=== PATIENT | male | born 1955 | race African-American/Black ===

== ENCOUNTER 2019-08-20 19:56 | Inpatient (IN) | payer MEDICAID ==
[~2019-08-20] VITALS: Ht 185.4 cm; Wt 103.4 kg
[~2019-08-20 19:56] MED LIST: AMLO5TAB88 PO; GLIP5TAB12 MT; L25 PO; LOSA25TA3 PO
[2019-08-20] MEDS ORDERED: ONDANSETRON HCL 4MG/2ML INJ IV STA (20:25)
[2019-08-20] MEDS ORDERED: SODIUM CHLORIDE 0.9% 1000ML BAG (SEPSIS BOLUS) IV ONE (20:30)
[2019-08-20] MEDS ORDERED: LEVETIRACETAM 1000MG/100ML 100 ML IV ONE (20:30)
[2019-08-20 20:51] LABS: HEMATOCRIT. 31.3 % (42.0-52.0); HEMOGLOBIN. 10.5 g/dL (14.0-18.0); MEAN CORPUSCULAR HEMOGLOBIN 31.6 pg (28.0-32.0); MEAN CORPUSCULAR VOLUME 94.6 fL (80.0-94.0); PLATELET 359 x1000/uL (130-400); RED BLOOD CELL COUNT 3.31 mill/uL (4.7-6.1)
[2019-08-20 20:52] LABS: CHLORIDE 94 mEq/L (98-107)
[2019-08-20 20:54] LABS: CLARITY URINE CLOUDY (CLEAR); COLOR URINE YELLOW (YELLOW); KETONES URINE NEGATIVE (NEGATIVE); LEUKOCYTE ESTERASE URINE NEGATIVE (NEGATIVE); NITRITE URINE NEGATIVE (NEGATIVE); OCCULT BLOOD URINE NEGATIVE (NEGATIVE); PROTEIN URINE 2+ (NEGATIVE); SPECIFIC GRAVITY URINE 1.013 (1.005-1.030)
[2019-08-20 20:56] LABS: PROTHROMBIN TIME 11.1 sec (9.6-11.0)
[2019-08-20 20:57] LABS: ETHANOL BLOOD < 10 mg/dL
[2019-08-20 21:01] LABS: CREATINE KINASE 52 IU/L (39-308)
[2019-08-20 21:04] LABS: BG BASE EXCESS 2.2 mmol/L (-2.0-2.0); BG CARBOXYHEMOGLOBIN 1.5 % (0.5-1.5); BG FRACTION INSPIRED OXYGEN 21; BG HCO3 ACT 26.8 mmol/L (22.0-26.0); BG METHEMOGLOBIN 0.3 % (0.0-1.5); BG OXYGEN SATURATION 88.8 % (92.0-98.5); BG OXYHEMOGLOBIN 87.2 % (94.0-97.0); BG PCO2 41.8 mmHg (35.0-45.0); BG PH 7.425 (7.350-7.450); BG PO2 57.2 mmHg (75.0-100.0); BG SAMPLE SITE RIGHT RADIAL; BG TOTAL HEMOGLOBIN 12.7 g/dL (12.0-18.0); BG VENT MODE ROOM AIR
[2019-08-20 21:07] LABS: *BARBITURATES SCREEN URINE NEGATIVE (NEGATIVE); *BENZODIAZEPINES SCREEN URINE NEGATIVE (NEGATIVE); *COCAINE SCREEN URINE NEGATIVE (NEGATIVE)
[2019-08-20 21:08] LABS: CARBAMAZEPINE < 0.5 ug/mL (4-12); VALPROIC ACID < 3.0 ug/mL (50-100)
[2019-08-20 21:08] LABS: *AMPHETAMINES SCREEN URINE NEGATIVE (NEGATIVE); CANNABINOID URINE SCREEN NEGATIVE (NEGATIVE); METHADONE URINE SCREEN NEGATIVE (NEGATIVE); OPIATES URINE SCREEN NEGATIVE (NEGATIVE); PHENCYCLIDINE URINE SCREEN NEGATIVE (NEGATIVE)
[2019-08-20 22:03] LABS: PLATELET ESTIMATE NORMAL
[2019-08-20] MEDS ORDERED: VANCOMYCIN 1 G PREMIX 200 ML IV SCH (23:30)
[2019-08-20] MEDS ORDERED: POTASSIUM CHLORIDE INJ 40 MEQ in DEXT 5% WATER 250 ML IV ONE (23:30)
[2019-08-21] VITALS (7 sets, daily range): BP systolic 196–209; BP diastolic 78–95
[2019-08-21] MEDS ORDERED: DIAZEPAM 5 MG/ML 2ML CPJ IM ONE
[2019-08-21] MEDS ORDERED: LORAZEPAM 2MG/ML CPJ ONE (06:05)
[2019-08-21] MEDS ORDERED: PHENYTOIN SODIUM 500MG in SODIUM CHLORIDE 0.9% 50ML IV ONE (07:30)
[2019-08-21] MEDS ORDERED: DEXTROSE 50% WATER 50ML SYRINGE IV PRN ×2 (07:30→16:45)
[2019-08-21] MEDS ORDERED: LORAZEPAM 2MG/ML CPJ IV ONE (07:30)
[2019-08-21] MEDS: INSULIN LISPRO (HIGH DOSE) 100 UNITS/ML SUBCUT SCH ×4 (08:17→22:33)
[2019-08-21] MEDS: BLOOD SUGAR DIAGNOSTIC STRIP TEST SCH ×4 (08:17→21:34)
[2019-08-21] MEDS ORDERED: MAGNESIUM/ALUMINUM HYDROXIDE/SIMETHICONE 30ML UDC PO PRN ×2 (09:00→16:45)
[2019-08-21] MEDS ORDERED: NA PHOS,M-B/NA PHOS,DI-BA ENEMA 118ML PR PRN ×2 (09:00→16:45)
[2019-08-21] MEDS ORDERED: GUAIFENESIN 200MG/10ML SUGAR FREE UDC PO PRN ×2 (09:00→16:45)
[2019-08-21] MEDS ORDERED: IPRATROPIUM/ALBUTEROL 0.5-3(2.5)MG/3ML NEB NEB PRN ×2 (09:00→16:45)
[2019-08-21] MEDS ORDERED: DOCUSATE SODIUM 100MG CAPSULE PO PRN ×2 (09:00→16:45)
[2019-08-21] MEDS ORDERED: ASPIRIN 81MG EC TABLET PO SCH (09:00)
[2019-08-21] MEDS ORDERED: MORPHINE SULFATE 2 MG/ML CPJ (NOT FOR IM USE) IV PRN ×2 (09:00→16:45)
[2019-08-21] MEDS ORDERED: DIPHENHYDRAMINE 50MG/ML VIAL IV PRN ×2 (09:00→16:45)
[2019-08-21] MEDS ORDERED: ONDANSETRON HCL 4MG/2ML INJ IV PRN ×2 (09:00→16:45)
[2019-08-21] MEDS ORDERED: LORAZEPAM 2MG/ML CPJ IV PRN (09:00)
[2019-08-21] MEDS ORDERED: HYDROCODONE/ACETAMINOPHEN 5/325MG TABLET PO PRN ×2 (09:00→16:45)
[2019-08-21] MEDS ORDERED: ACETAMINOPHEN 325MG TABLET PO PRN (09:00)
[2019-08-21] MEDS ORDERED: CLONIDINE 0.1MG TABLET PO PRN (09:00)
[2019-08-21] MEDS ORDERED: ENOXAPARIN 40MG/0.4ML SYR SUBCUT SCH (09:00)
[2019-08-21] MEDS ORDERED: AZITHROMYCIN 500 MG in DEXT 5% WATER 250 ML IV NR (09:30)
[2019-08-21] MEDS ORDERED: DEXT 5%/0.45% NACL KCL 10MEQ/L 1,000 ML IV ONE (09:30)
[2019-08-21] MEDS ORDERED: HYDRALAZINE 20MG/ML VIAL IV NR (13:05)
[2019-08-21] MEDS ORDERED: DEXT 5%/0.45% NACL KCL 10MEQ/L 1,000 ML IV SCH ×2 (15:00→16:15)
[2019-08-21] MEDS: ASPIRIN 81MG EC TABLET PO SCH (17:00)
[2019-08-21] MEDS: VANCOMYCIN 1500MG in DEXTROSE 5% WATER 250ML IV SCH (17:54)
[2019-08-21] MEDS ORDERED: LABETALOL 5MG/ML SYR 20 MG/4 ML SYRINGE IV SCH (18:00)
[2019-08-21] MEDS: CLONIDINE 0.1MG TABLET PO PRN (21:30)
[2019-08-21] MEDS: HYDRALAZINE 20MG/ML VIAL IV PRN (21:32)
[2019-08-21] MEDS: LEVETIRACETAM 500MG PREMIX 100 ML IV SCH (21:32)
[2019-08-21] MEDS: ENOXAPARIN 40MG/0.4ML SYR SUBCUT SCH (21:34)
[2019-08-21] MEDS: DEXT 5%/0.45% NACL KCL 10MEQ/L 1,000 ML IV SCH (21:34)
[2019-08-22] VITALS (90 sets, daily range): BP systolic 57–225; BP diastolic 36–130
[2019-08-22] MEDS ORDERED: LABETALOL 5MG/ML SYR 20 MG/4 ML SYRINGE IV NR (01:00)
[2019-08-22 02:24] LABS: HEMATOCRIT. 28.2 % (42.0-52.0); MEAN CORPUSCULAR HEMOGLOBIN 32.3 pg (28.0-32.0); MEAN CORPUSCULAR VOLUME 90.8 fL (80.0-94.0); MEAN PLATELET VOLUME 10.5 fl (7.4-10.4); PLATELET 521 x1000/uL (130-400); RED BLOOD CELL COUNT 3.11 mill/uL (4.7-6.1)
[2019-08-22] MEDS ORDERED: NICARDIPINE 100 MG in SODIUM CHLORIDE 0.9% 60 ML IV PRN (02:30)
[2019-08-22] MEDS: CLONIDINE HCL 0.1MG/24HR PATCH TD NR (02:34)
[2019-08-22] MEDS: NICARDIPINE 50 MG in SODIUM CHLORIDE 0.9% 230 ML IV PRN ×5 (03:34→21:16)
[2019-08-22] MEDS: BLOOD SUGAR DIAGNOSTIC STRIP TEST SCH ×4 (06:30→20:39)
[2019-08-22] MEDS: INSULIN LISPRO (HIGH DOSE) 100 UNITS/ML SUBCUT SCH ×4 (06:30→20:52)
[2019-08-22 06:42] LABS: CHLORIDE 99 mEq/L (98-107)
[2019-08-22] MEDS: DEXT 5%/0.45% NACL KCL 10MEQ/L 1,000 ML IV SCH ×2 (07:55→17:02)
[2019-08-22] MEDS: AZITHROMYCIN 500 MG in DEXT 5% WATER 250 ML IV SCH (08:42)
[2019-08-22] MEDS: LEVETIRACETAM 500MG PREMIX 100 ML IV SCH ×2 (08:42→20:45)
[2019-08-22] MEDS: THIAMINE HCL 100MG TABLET PO SCH (08:43)
[2019-08-22] MEDS: FOLIC ACID 1MG TABLET PO SCH (08:43)
[2019-08-22] MEDS: MULTIVITAMINS,THER W-MINERALS TABLET PO SCH (08:43)
[2019-08-22] MEDS: ASPIRIN 81MG EC TABLET PO SCH (08:43)
[2019-08-22] MEDS ORDERED: POTASSIUM CHLORIDE INJ 40 MEQ in DEXT 5% WATER 250 ML IV SCH (09:00)
[2019-08-22] MEDS ORDERED: THIAMINE HCL 100MG TABLET PO SCH (09:00)
[2019-08-22] MEDS ORDERED: FOLIC ACID 1MG TABLET PO SCH (09:00)
[2019-08-22] MEDS ORDERED: AZITHROMYCIN 500 MG in DEXT 5% WATER 250 ML IV SCH ×4 (09:00)
[2019-08-22] MEDS ORDERED: MULTIVITAMINS,THER W-MINERALS TABLET PO SCH (09:00)
[2019-08-22] MEDS: LORAZEPAM 2MG/ML CPJ IV PRN (09:16)
[2019-08-22 09:52] LABS: CHLORIDE 100 mEq/L (98-107)
[2019-08-22] MEDS ORDERED: POTASSIUM CHLORIDE INJ 60 MEQ in DEXT 5% WATER 500 ML IV SCH ×2 (11:15→14:00)
[2019-08-22] MEDS: VANCOMYCIN 1500MG in DEXTROSE 5% WATER 250ML IV SCH (12:00)
[2019-08-22] MEDS ORDERED: LIDOCAINE HCL 1% 20ML VIAL (Pyxis) INJ ONE (12:11)
[2019-08-22 13:04] LABS: BG BASE EXCESS 6.9 mmol/L (-2.0-2.0); BG CARBOXYHEMOGLOBIN 0.3 % (0.5-1.5); BG DEOXYHEMOGLOBIN 0.4 % (0.0-5.0); BG HCO3 ACT 30.4 mmol/L (22.0-26.0); BG METHEMOGLOBIN 0.3 % (0.0-1.5); BG OXYGEN SATURATION 99.6 % (92.0-98.5); BG PCO2 39.2 mmHg (35.0-45.0); BG PH 7.508 (7.350-7.450); BG PO2 495.8 mmHg (75.0-100.0); BG SAMPLE SITE RIGHT RADIAL; BG TIDAL VOLUME(mL) 500 mL; BG TOTAL HEMOGLOBIN 11.2 g/dL (12.0-18.0); BG VENT MODE VENT - A/C; BG VENT RATE 16 set
[2019-08-22] MEDS: PROPOFOL 10MG/ML 100ML 100 ML IV PRN ×3 (13:16→20:51)
[2019-08-22] MEDS: IPRATROPIUM/ALBUTEROL 0.5-3(2.5)MG/3ML NEB HHN SCH ×2 (16:16→20:54)
[2019-08-22] MEDS: ACETYLCYSTEINE 100MG/ML 10% VIAL 4ML INH SCH (16:16)
[2019-08-22 19:04] LABS: PLATELET ESTIMATE INCREASED
[2019-08-22] MEDS: ENOXAPARIN 40MG/0.4ML SYR SUBCUT SCH (20:51)
[2019-08-22] MEDS ORDERED: POTASSIUM CHLORIDE 20MEQ/PACKET PO NR (21:00)
[2019-08-22] MEDS: ACETAMINOPHEN 325MG TABLET PO PRN (22:35)
[2019-08-22] MEDS ORDERED: POTASSIUM PHOS,M-BASIC-D-BASIC 30 MMOL in SODIUM CHLORIDE 0.9% 500 ML IV NR (23:00)
[2019-08-23] VITALS (84 sets, daily range): BP systolic 58–196; BP diastolic 16–98
[2019-08-23] MEDS: PROPOFOL 10MG/ML 100ML 100 ML IV PRN ×6 (00:27→20:22)
[2019-08-23] MEDS: IPRATROPIUM/ALBUTEROL 0.5-3(2.5)MG/3ML NEB HHN SCH ×4 (00:46→21:32)
[2019-08-23] MEDS: CLONIDINE HCL 0.1MG/24HR PATCH TD NR (01:00)
[2019-08-23] MEDS: NICARDIPINE 50 MG in SODIUM CHLORIDE 0.9% 230 ML IV PRN ×3 (01:27→20:29)
[2019-08-23] MEDS: DEXT 5%/0.45% NACL KCL 10MEQ/L 1,000 ML IV SCH ×3 (03:02→22:56)
[2019-08-23] MEDS: BLOOD SUGAR DIAGNOSTIC STRIP TEST SCH ×4 (08:06→20:23)
[2019-08-23 08:18] LABS: HEMATOCRIT. 22.7 % (42.0-52.0); HEMOGLOBIN. 7.7 g/dL (14.0-18.0); MEAN CORPUSCULAR HEMOGLOBIN 31.2 pg (28.0-32.0); MEAN CORPUSCULAR VOLUME 92.4 fL (80.0-94.0); MEAN PLATELET VOLUME 9.5 fl (7.4-10.4); PHOSPHORUS 2.8 mg/dL (2.5-4.9); PLATELET 372 x1000/uL (130-400); RED BLOOD CELL COUNT 2.46 mill/uL (4.7-6.1); RED CELL DISTRIBUTION WIDTH 16.8 % (11.6-14.6)
[2019-08-23] MEDS: LEVETIRACETAM 500MG PREMIX 100 ML IV SCH ×2 (08:44→20:20)
[2019-08-23] MEDS: AZITHROMYCIN 500 MG in DEXT 5% WATER 250 ML IV SCH (08:44)
[2019-08-23] MEDS: VANCOMYCIN 1500MG in DEXTROSE 5% WATER 250ML IV SCH (08:44)
[2019-08-23] MEDS: FOLIC ACID 1MG TABLET PO SCH (08:45)
[2019-08-23] MEDS: THIAMINE HCL 100MG TABLET PO SCH (08:45)
[2019-08-23] MEDS: MULTIVITAMINS,THER W-MINERALS TABLET PO SCH (08:45)
[2019-08-23] MEDS: INSULIN LISPRO (HIGH DOSE) 100 UNITS/ML SUBCUT SCH ×4 (08:48→20:23)
[2019-08-23] MEDS: ACETYLCYSTEINE 100MG/ML 10% VIAL 4ML INH SCH ×3 (08:57→14:00)
[2019-08-23] MEDS: ASPIRIN 81MG EC TABLET PO SCH (09:00)
[2019-08-23 09:08] LABS: BG BASE EXCESS 0.6 mmol/L (-2.0-2.0); BG CARBOXYHEMOGLOBIN 0.3 % (0.5-1.5); BG DEOXYHEMOGLOBIN 3.1 % (0.0-5.0); BG FRACTION INSPIRED OXYGEN 40; BG HCO3 ACT 23.6 mmol/L (22.0-26.0); BG METHEMOGLOBIN 0.3 % (0.0-1.5); BG OXYGEN SATURATION 96.9 % (92.0-98.5); BG OXYHEMOGLOBIN 96.3 % (94.0-97.0); BG PCO2 31.2 mmHg (35.0-45.0); BG PH 7.496 (7.350-7.450); BG PO2 93.8 mmHg (75.0-100.0); BG SAMPLE SITE RIGHT RADIAL; BG TIDAL VOLUME(mL) 500 mL; BG TOTAL HEMOGLOBIN 8.7 g/dL (12.0-18.0); BG VENT MODE VENT - A/C; BG VENT RATE 12 set
[2019-08-23 09:59] LABS: PLATELET ESTIMATE NORMAL
[2019-08-23] MEDS ORDERED: POTASSIUM CHLORIDE INJ 60 MEQ in SODIUM CHLORIDE 0.9% 500 ML IV SCH (11:00)
[2019-08-23] MEDS: INSULIN GLARGINE UD 100 UNITS/ML SYR SUBCUT SCH (12:10)
[2019-08-23] MEDS ORDERED: ENOXAPARIN 40MG/0.4ML SYR SUBCUT SCH (14:00)
[2019-08-23] MEDS: CEFTRIAXONE 2 G in DEXTROSE 5% WATER 50 ML IV SCH (14:10)
[2019-08-23] MEDS ORDERED: MAGNESIUM 2 G PREMIX 50 ML IV NR ×2 (16:20→22:30)
[2019-08-23] MEDS: ACETAMINOPHEN 325MG TABLET PO PRN (16:25)
[2019-08-23] MEDS: LORAZEPAM 2MG/ML CPJ IV PRN (18:03)
[2019-08-23] MEDS: CARVEDILOL 6.25 MG TABLET PO SCH (20:21)
[2019-08-24] VITALS (85 sets, daily range): BP systolic 119–191; BP diastolic 59–137
[2019-08-24] MEDS ORDERED: POTASSIUM CHLORIDE 20MEQ TABLET SR PO NR
[2019-08-24 00:25] LABS: CREATINE KINASE 234 IU/L (39-308)
[2019-08-24] MEDS: CLONIDINE HCL 0.1MG/24HR PATCH TD NR (00:33)
[2019-08-24] MEDS: PROPOFOL 10MG/ML 100ML 100 ML IV PRN ×6 (00:33→22:42)
[2019-08-24] MEDS: ACETYLCYSTEINE 100MG/ML 10% VIAL 4ML INH SCH ×3 (01:05→15:51)
[2019-08-24] MEDS: IPRATROPIUM/ALBUTEROL 0.5-3(2.5)MG/3ML NEB HHN SCH ×6 (01:06→20:22)
[2019-08-24 06:12] LABS: PHOSPHORUS 3.3 mg/dL (2.5-4.9)
[2019-08-24 08:05] LABS: HEMATOCRIT. 24.4 % (42.0-52.0); HEMOGLOBIN. 8.1 g/dL (14.0-18.0); MEAN CORPUSCULAR HEMOGLOBIN 31.3 pg (28.0-32.0); MEAN CORPUSCULAR VOLUME 93.8 fL (80.0-94.0); MEAN PLATELET VOLUME 9.9 fl (7.4-10.4); PLATELET 363 x1000/uL (130-400); RED CELL DISTRIBUTION WIDTH 16.4 % (11.6-14.6)
[2019-08-24] MEDS: AZITHROMYCIN 500 MG in DEXT 5% WATER 250 ML IV SCH (08:42)
[2019-08-24] MEDS: THIAMINE HCL 100MG TABLET PO SCH (08:42)
[2019-08-24] MEDS: FOLIC ACID 1MG TABLET PO SCH (08:42)
[2019-08-24] MEDS: PANTOPRAZOLE SODIUM 40 MG/VIAL IV SCH (08:42)
[2019-08-24] MEDS: MULTIVITAMINS,THER W-MINERALS TABLET PO SCH (08:42)
[2019-08-24] MEDS: CARVEDILOL 6.25 MG TABLET PO SCH ×2 (08:43→20:44)
[2019-08-24] MEDS: BLOOD SUGAR DIAGNOSTIC STRIP TEST SCH ×4 (08:45→20:43)
[2019-08-24] MEDS: ASPIRIN 81MG EC TABLET PO SCH (09:00)
[2019-08-24] MEDS: INSULIN LISPRO (HIGH DOSE) 100 UNITS/ML SUBCUT SCH ×4 (09:12→20:45)
[2019-08-24] MEDS: LEVETIRACETAM 500MG PREMIX 100 ML IV SCH ×2 (09:15→20:43)
[2019-08-24] MEDS: DEXT 5%/0.45% NACL 1000ML 1,000 ML IV SCH (09:19)
[2019-08-24 09:23] LABS: BG BASE EXCESS -2.8 mmol/L (-2.0-2.0); BG CARBOXYHEMOGLOBIN 0.3 % (0.5-1.5); BG DEOXYHEMOGLOBIN 18.8 % (0.0-5.0); BG FRACTION INSPIRED OXYGEN 40; BG HCO3 ACT 21.1 mmol/L (22.0-26.0); BG METHEMOGLOBIN 0.1 % (0.0-1.5); BG OXYGEN SATURATION 81.1 % (92.0-98.5); BG OXYHEMOGLOBIN 80.8 % (94.0-97.0); BG PCO2 32.9 mmHg (35.0-45.0); BG PH 7.425 (7.350-7.450); BG PO2 46.4 mmHg (75.0-100.0); BG SAMPLE SITE RIGHT RADIAL; BG TIDAL VOLUME(mL) 500 mL; BG VENT MODE VENT - A/C; BG VENT RATE 12 set
[2019-08-24 10:24] LABS: PLATELET ESTIMATE NORMAL
[2019-08-24 11:00] LABS: BG BASE EXCESS -4.3 mmol/L (-2.0-2.0); BG CARBOXYHEMOGLOBIN 0.2 % (0.5-1.5); BG DEOXYHEMOGLOBIN 3.6 % (0.0-5.0); BG FRACTION INSPIRED OXYGEN 60; BG HCO3 ACT 19.3 mmol/L (22.0-26.0); BG METHEMOGLOBIN 0.2 % (0.0-1.5); BG OXYGEN SATURATION 96.4 % (92.0-98.5); BG PCO2 29.8 mmHg (35.0-45.0); BG PH 7.429 (7.350-7.450); BG PO2 89.4 mmHg (75.0-100.0); BG SAMPLE SITE RIGHT RADIAL; BG TIDAL VOLUME(mL) 500 mL; BG VENT MODE VENT - A/C; BG VENT RATE 12 set
[2019-08-24] MEDS: INSULIN GLARGINE UD 100 UNITS/ML SYR SUBCUT SCH (12:28)
[2019-08-24] MEDS: CEFTRIAXONE 2 G in DEXTROSE 5% WATER 50 ML IV SCH (14:25)
[2019-08-24 19:29] LABS: HEMATOCRIT. 24.8 % (42.0-52.0); HEMOGLOBIN. 8.6 g/dL (14.0-18.0); MEAN CORPUSCULAR VOLUME 92.7 fL (80.0-94.0); MEAN PLATELET VOLUME 9.3 fl (7.4-10.4); PLATELET 384 x1000/uL (130-400); RED BLOOD CELL COUNT 2.68 mill/uL (4.7-6.1); RED CELL DISTRIBUTION WIDTH 16.5 % (11.6-14.6)
[2019-08-24 20:34] LABS: PLATELET ESTIMATE NORMAL
[2019-08-24] MEDS ORDERED: VANCOMYCIN 1 G PREMIX 200 ML IV SCH (22:00)
[2019-08-25] VITALS (70 sets, daily range): BP systolic 124–165; BP diastolic 41–84
[2019-08-25] MEDS: IPRATROPIUM/ALBUTEROL 0.5-3(2.5)MG/3ML NEB HHN SCH ×5 (00:14→20:03)
[2019-08-25] MEDS: ACETYLCYSTEINE 100MG/ML 10% VIAL 4ML INH SCH ×3 (00:14→13:12)
[2019-08-25] MEDS: CLONIDINE HCL 0.1MG/24HR PATCH TD NR (01:00)
[2019-08-25] MEDS: PROPOFOL 10MG/ML 100ML 100 ML IV PRN ×4 (03:31→16:31)
[2019-08-25 06:46] LABS: MEAN CORPUSCULAR HEMOGLOBIN 31.9 pg (28.0-32.0); MEAN PLATELET VOLUME 9.8 fl (7.4-10.4); PLATELET 292 x1000/uL (130-400); RED BLOOD CELL COUNT 2.19 mill/uL (4.7-6.1)
[2019-08-25 06:56] LABS: HEMATOCRIT. 20.4 % (42.0-52.0)
[2019-08-25 07:49] LABS: BG BASE EXCESS -5.9 mmol/L (-2.0-2.0); BG CARBOXYHEMOGLOBIN 0.3 % (0.5-1.5); BG DEOXYHEMOGLOBIN 3.2 % (0.0-5.0); BG FRACTION INSPIRED OXYGEN 60; BG HCO3 ACT 19.5 mmol/L (22.0-26.0); BG METHEMOGLOBIN 0.2 % (0.0-1.5); BG OXYGEN SATURATION 96.8 % (92.0-98.5); BG OXYHEMOGLOBIN 96.3 % (94.0-97.0); BG PCO2 38.1 mmHg (35.0-45.0); BG PH 7.327 (7.350-7.450); BG SAMPLE SITE RIGHT RADIAL; BG TIDAL VOLUME(mL) 500 mL; BG TOTAL HEMOGLOBIN 8.2 g/dL (12.0-18.0); BG VENT MODE VENT - A/C; BG VENT RATE 12 set
[2019-08-25] MEDS: BLOOD SUGAR DIAGNOSTIC STRIP TEST SCH ×4 (07:50→20:44)
[2019-08-25] MEDS: INSULIN LISPRO (HIGH DOSE) 100 UNITS/ML SUBCUT SCH ×4 (08:20→20:45)
[2019-08-25] MEDS: PANTOPRAZOLE SODIUM 40 MG/VIAL IV SCH (10:14)
[2019-08-25] MEDS: THIAMINE HCL 100MG TABLET PO SCH (10:14)
[2019-08-25] MEDS: ASPIRIN 81MG EC TABLET PO SCH (10:15)
[2019-08-25] MEDS: FOLIC ACID 1MG TABLET PO SCH (10:15)
[2019-08-25] MEDS: AZITHROMYCIN 500 MG in DEXT 5% WATER 250 ML IV SCH (10:15)
[2019-08-25] MEDS: CARVEDILOL 6.25 MG TABLET PO SCH ×2 (10:15→20:47)
[2019-08-25] MEDS: LEVETIRACETAM 500MG PREMIX 100 ML IV SCH ×2 (10:15→20:47)
[2019-08-25] MEDS: MULTIVITAMINS,THER W-MINERALS TABLET PO SCH (10:15)
[2019-08-25] MEDS: INSULIN GLARGINE UD 100 UNITS/ML SYR SUBCUT SCH (10:17)
[2019-08-25] MEDS: DEXT 5%/0.45% NACL 1000ML 1,000 ML IV SCH (10:19)
[2019-08-25 13:09] LABS: PLATELET ESTIMATE NORMAL
[2019-08-25] MEDS: FENTANYL CITRATE/PF 500 MCG in SODIUM CHLORIDE 0.9% 40 ML IV PRN ×2 (15:00→23:05)
[2019-08-25] MEDS: CEFTRIAXONE 2 G in DEXTROSE 5% WATER 50 ML IV SCH (17:29)
[2019-08-25 19:53] LABS: HEMATOCRIT 26.6 % (42.0-52.0); HEMOGLOBIN 8.9 g/dL (14.0-18.0)
[2019-08-26] VITALS (57 sets, daily range): BP systolic 139–184; BP diastolic 64–146
[2019-08-26] MEDS: CLONIDINE HCL 0.1MG/24HR PATCH TD NR (00:09)
[2019-08-26] MEDS: IPRATROPIUM/ALBUTEROL 0.5-3(2.5)MG/3ML NEB HHN SCH ×5 (00:15→15:00)
[2019-08-26] MEDS: PROPOFOL 10MG/ML 100ML 100 ML IV PRN (02:32)
[2019-08-26 05:57] LABS: HEMATOCRIT. 24.6 % (42.0-52.0); HEMOGLOBIN. 8.4 g/dL (14.0-18.0); MEAN CORPUSCULAR HEMOGLOBIN 30.3 pg (28.0-32.0); MEAN CORPUSCULAR VOLUME 88.5 fL (80.0-94.0); MEAN PLATELET VOLUME 9.7 fl (7.4-10.4); RED BLOOD CELL COUNT 2.78 mill/uL (4.7-6.1); RED CELL DISTRIBUTION WIDTH 20.1 % (11.6-14.6)
[2019-08-26 06:14] LABS: INR 0.9; PARTIAL THROMBOPLASTIN TIME 33.1 sec (23.4-31.0); PROTHROMBIN TIME 10.1 sec (9.6-11.0)
[2019-08-26] MEDS: BLOOD SUGAR DIAGNOSTIC STRIP TEST SCH ×3 (07:24→17:34)
[2019-08-26] MEDS: INSULIN LISPRO (HIGH DOSE) 100 UNITS/ML SUBCUT SCH ×3 (07:24→17:34)
[2019-08-26 07:30] LABS: PLATELET ESTIMATE NORMAL
[2019-08-26 07:45] LABS: PLATELET 321 x1000/uL (130-400)
[2019-08-26] MEDS: ACETYLCYSTEINE 100MG/ML 10% VIAL 4ML INH SCH ×2 (08:04→15:01)
[2019-08-26] MEDS: CARVEDILOL 6.25 MG TABLET PO SCH ×2 (08:10→21:28)
[2019-08-26] MEDS: MULTIVITAMINS,THER W-MINERALS TABLET PO SCH (08:10)
[2019-08-26] MEDS: THIAMINE HCL 100MG TABLET PO SCH (08:10)
[2019-08-26] MEDS: FOLIC ACID 1MG TABLET PO SCH (08:10)
[2019-08-26] MEDS: DEXT 5%/0.45% NACL 1000ML 1,000 ML IV SCH (08:11)
[2019-08-26] MEDS: LEVETIRACETAM 500MG PREMIX 100 ML IV SCH ×2 (08:12→21:28)
[2019-08-26] MEDS: PANTOPRAZOLE SODIUM 40 MG/VIAL IV SCH (08:15)
[2019-08-26] MEDS: ASPIRIN 81MG EC TABLET PO SCH (08:15)
[2019-08-26 09:13] LABS: BG BASE EXCESS -7.9 mmol/L (-2.0-2.0); BG CARBOXYHEMOGLOBIN 0.3 % (0.5-1.5); BG DEOXYHEMOGLOBIN 2.9 % (0.0-5.0); BG FRACTION INSPIRED OXYGEN 50; BG HCO3 ACT 17.3 mmol/L (22.0-26.0); BG METHEMOGLOBIN 0.3 % (0.0-1.5); BG OXYGEN SATURATION 97.1 % (92.0-98.5); BG OXYHEMOGLOBIN 96.5 % (94.0-97.0); BG PCO2 33.5 mmHg (35.0-45.0); BG PO2 105.9 mmHg (75.0-100.0); BG SAMPLE SITE RIGHT RADIAL; BG TIDAL VOLUME(mL) 500 mL; BG TOTAL HEMOGLOBIN 8.8 g/dL (12.0-18.0); BG VENT MODE VENT - A/C; BG VENT RATE 12 set
[2019-08-26] MEDS: FENTANYL CITRATE/PF 500 MCG in SODIUM CHLORIDE 0.9% 40 ML IV PRN ×2 (09:19→21:35)
[2019-08-26] MEDS: INSULIN GLARGINE UD 100 UNITS/ML SYR SUBCUT SCH (09:51)
[2019-08-26] MEDS ORDERED: LIDOCAINE HCL 1% 20ML VIAL (Pyxis) INJ ONE (11:09)
[2019-08-26] MEDS: MIDAZOLAM HCL 50 MG in DEXTROSE 5% WATER 40 ML IV PRN ×2 (11:29→23:22)
[2019-08-26] MEDS ORDERED: MIDAZOLAM HCL 5 MG/5 ML VIAL ONE (12:20)
[2019-08-26] MEDS ORDERED: FENTANYL CITRATE/PF 50MCG/ML 2ML VIAL ONE (12:20)
[2019-08-26] MEDS ORDERED: MIDAZOLAM HCL 5 MG/5 ML VIAL IV NR (12:20)
[2019-08-26 12:42] LABS: HEPATITIS B SURFACE AB < 3.1 mIU/mL
[2019-08-26 12:52] LABS: HEPATITIS B SURFACE ANTIGEN NEGATIVE
[2019-08-26] MEDS: CEFTRIAXONE 2 G in DEXTROSE 5% WATER 50 ML IV SCH (13:02)
[2019-08-26 13:22] LABS: HEPATITIS A AB IGM NEGATIVE (NEGATIVE)
[2019-08-27] VITALS (55 sets, daily range): BP systolic 143–209; BP diastolic 57–95
[2019-08-27] MEDS: IPRATROPIUM/ALBUTEROL 0.5-3(2.5)MG/3ML NEB HHN SCH ×7 (00:50→23:58)
[2019-08-27] MEDS: ACETYLCYSTEINE 100MG/ML 10% VIAL 4ML INH SCH ×2 (00:50→07:50)
[2019-08-27] MEDS: BLOOD SUGAR DIAGNOSTIC STRIP TEST SCH ×4 (05:43→18:42)
[2019-08-27] MEDS: INSULIN LISPRO 100 UNITS/ML SUBCUT SCH ×4 (05:43→18:42)
[2019-08-27 06:20] LABS: HEMATOCRIT. 23.7 % (42.0-52.0); HEMOGLOBIN. 8.2 g/dL (14.0-18.0); MEAN CORPUSCULAR HEMOGLOBIN 30.6 pg (28.0-32.0); MEAN CORPUSCULAR VOLUME 88.4 fL (80.0-94.0); MEAN PLATELET VOLUME 9.6 fl (7.4-10.4); PLATELET 386 x1000/uL (130-400); RED BLOOD CELL COUNT 2.68 mill/uL (4.7-6.1); RED CELL DISTRIBUTION WIDTH 20.2 % (11.6-14.6)
[2019-08-27 08:17] LABS: PLATELET ESTIMATE NORMAL
[2019-08-27] MEDS: FOLIC ACID 1MG TABLET PO SCH (09:20)
[2019-08-27] MEDS: CLONIDINE 0.1MG TABLET PO PRN ×2 (09:20→15:14)
[2019-08-27] MEDS: PANTOPRAZOLE SODIUM 40 MG/VIAL IV SCH (09:20)
[2019-08-27] MEDS: THIAMINE HCL 100MG TABLET PO SCH (09:20)
[2019-08-27] MEDS: MULTIVITAMINS,THER W-MINERALS TABLET PO SCH (09:21)
[2019-08-27] MEDS: CARVEDILOL 6.25 MG TABLET PO SCH ×2 (09:21→20:54)
[2019-08-27] MEDS: ASPIRIN 81MG EC TABLET PO SCH (09:21)
[2019-08-27] MEDS: LEVETIRACETAM 500MG PREMIX 100 ML IV SCH ×2 (09:22→20:53)
[2019-08-27] MEDS: DEXT 5%/0.45% NACL 1000ML 1,000 ML IV SCH (09:23)
[2019-08-27 09:34] LABS: BG BASE EXCESS -7.6 mmol/L (-2.0-2.0); BG CARBOXYHEMOGLOBIN 0.3 % (0.5-1.5); BG DEOXYHEMOGLOBIN 5.3 % (0.0-5.0); BG FRACTION INSPIRED OXYGEN 40; BG HCO3 ACT 17.4 mmol/L (22.0-26.0); BG METHEMOGLOBIN 0.1 % (0.0-1.5); BG OXYGEN SATURATION 94.7 % (92.0-98.5); BG OXYHEMOGLOBIN 94.3 % (94.0-97.0); BG PCO2 33.3 mmHg (35.0-45.0); BG PH 7.336 (7.350-7.450); BG PO2 85.2 mmHg (75.0-100.0); BG SAMPLE SITE RIGHT RADIAL; BG TIDAL VOLUME(mL) 500 mL; BG TOTAL HEMOGLOBIN 9.5 g/dL (12.0-18.0); BG VENT MODE VENT - A/C; BG VENT RATE 12 set
[2019-08-27] MEDS ORDERED: MORPHINE SULFATE 2 MG/ML CPJ (NOT FOR IM USE) IV PRN (10:00)
[2019-08-27] MEDS ORDERED: LORAZEPAM 2MG/ML CPJ IV PRN (10:00)
[2019-08-27] MEDS: INSULIN GLARGINE UD 100 UNITS/ML SYR SUBCUT SCH (10:29)
[2019-08-27] MEDS: HYDRALAZINE HCL 25MG TABLET PO SCH ×2 (13:13→22:00)
[2019-08-27] MEDS: HYDRALAZINE 20MG/ML VIAL IV PRN (14:38)
[2019-08-27] MEDS: CEFTRIAXONE 2 G in DEXTROSE 5% WATER 50 ML IV SCH (14:49)
[2019-08-27] MEDS: ACETAMINOPHEN 325MG TABLET PO PRN (16:49)
[2019-08-28] VITALS (55 sets, daily range): BP systolic 138–186; BP diastolic 60–86
[2019-08-28] MEDS: BLOOD SUGAR DIAGNOSTIC STRIP TEST SCH ×4 (00:12→17:02)
[2019-08-28] MEDS: HYDRALAZINE HCL 25MG TABLET PO SCH ×3 (05:22→21:21)
[2019-08-28] MEDS: INSULIN LISPRO 100 UNITS/ML SUBCUT SCH ×4 (05:22→17:02)
[2019-08-28 05:40] LABS: HEMATOCRIT. 24.2 % (42.0-52.0); HEMOGLOBIN. 8.3 g/dL (14.0-18.0); MEAN CORPUSCULAR HEMOGLOBIN 30.4 pg (28.0-32.0); MEAN CORPUSCULAR VOLUME 88.3 fL (80.0-94.0); MEAN PLATELET VOLUME 9.4 fl (7.4-10.4); PLATELET 429 x1000/uL (130-400); RED BLOOD CELL COUNT 2.74 mill/uL (4.7-6.1); RED CELL DISTRIBUTION WIDTH 20.6 % (11.6-14.6)
[2019-08-28 08:17] LABS: PLATELET ESTIMATE SLIGHTLY INCREASED
[2019-08-28] MEDS: IPRATROPIUM/ALBUTEROL 0.5-3(2.5)MG/3ML NEB HHN SCH ×4 (08:21→21:27)
[2019-08-28] MEDS: ASPIRIN 81MG EC TABLET PO SCH (09:14)
[2019-08-28] MEDS: CARVEDILOL 6.25 MG TABLET PO SCH ×2 (09:14→20:01)
[2019-08-28] MEDS: FOLIC ACID 1MG TABLET PO SCH (09:14)
[2019-08-28] MEDS: MULTIVITAMINS,THER W-MINERALS TABLET PO SCH (09:14)
[2019-08-28] MEDS: THIAMINE HCL 100MG TABLET PO SCH (09:14)
[2019-08-28] MEDS: ACETAMINOPHEN 325MG TABLET PO PRN (09:14)
[2019-08-28] MEDS: LEVETIRACETAM 500MG PREMIX 100 ML IV SCH ×2 (09:15→20:01)
[2019-08-28] MEDS: DEXT 5%/0.45% NACL 1000ML 1,000 ML IV SCH (09:15)
[2019-08-28] MEDS: PANTOPRAZOLE SODIUM 40 MG/VIAL IV SCH (10:43)
[2019-08-28] MEDS: INSULIN GLARGINE UD 100 UNITS/ML SYR SUBCUT SCH (10:44)
[2019-08-28] MEDS ORDERED: BISACODYL 10MG SUPP PR SCH (10:45)
[2019-08-28] MEDS: ACETYLCYSTEINE 100MG/ML 10% VIAL 4ML INH SCH (15:55)
[2019-08-28] MEDS: CLONIDINE 0.1MG TABLET PO PRN (15:56)
[2019-08-28] MEDS: CEFTRIAXONE 2 G in DEXTROSE 5% WATER 50 ML IV SCH (16:54)
[2019-08-28] MEDS: METRONIDAZOLE 500MG TABLET PO SCH (17:00)
[2019-08-28] MEDS: HYDRALAZINE 20MG/ML VIAL IV PRN (18:33)
[2019-08-28] MEDS: AMLODIPINE 10MG TABLET PO SCH (22:59)
[2019-08-29] VITALS (63 sets, daily range): BP systolic 127–192; BP diastolic 62–92
[2019-08-29] MEDS: BLOOD SUGAR DIAGNOSTIC STRIP TEST SCH ×4 (00:11→17:28)
[2019-08-29] MEDS: INSULIN LISPRO 100 UNITS/ML SUBCUT SCH ×4 (00:15→17:35)
[2019-08-29] MEDS: IPRATROPIUM/ALBUTEROL 0.5-3(2.5)MG/3ML NEB HHN SCH ×6 (00:57→20:35)
[2019-08-29] MEDS: ACETYLCYSTEINE 100MG/ML 10% VIAL 4ML INH SCH ×3 (00:57→15:49)
[2019-08-29] MEDS: HYDRALAZINE HCL 25MG TABLET PO SCH ×3 (05:27→22:00)
[2019-08-29 06:23] LABS: HEMATOCRIT. 24.3 % (42.0-52.0); HEMOGLOBIN. 8.2 g/dL (14.0-18.0); MEAN CORPUSCULAR VOLUME 88.5 fL (80.0-94.0); MEAN PLATELET VOLUME 9.2 fl (7.4-10.4); PLATELET 470 x1000/uL (130-400); RED BLOOD CELL COUNT 2.75 mill/uL (4.7-6.1); RED CELL DISTRIBUTION WIDTH 20.1 % (11.6-14.6)
[2019-08-29] MEDS: METRONIDAZOLE 500MG TABLET PO SCH ×2 (06:34→17:35)
[2019-08-29] MEDS: THIAMINE HCL 100MG TABLET PO SCH (09:29)
[2019-08-29] MEDS: PANTOPRAZOLE SODIUM 40 MG/VIAL IV SCH (09:29)
[2019-08-29] MEDS: MULTIVITAMINS,THER W-MINERALS TABLET PO SCH (09:29)
[2019-08-29] MEDS: LEVETIRACETAM 500MG PREMIX 100 ML IV SCH ×2 (09:29→20:17)
[2019-08-29] MEDS: FOLIC ACID 1MG TABLET PO SCH (09:29)
[2019-08-29] MEDS: INSULIN GLARGINE UD 100 UNITS/ML SYR SUBCUT SCH (09:29)
[2019-08-29] MEDS: CARVEDILOL 6.25 MG TABLET PO SCH ×2 (09:29→20:17)
[2019-08-29] MEDS: AMLODIPINE 10MG TABLET PO SCH (09:30)
[2019-08-29] MEDS: ASPIRIN 81MG EC TABLET PO SCH (09:30)
[2019-08-29 09:46] LABS: BG BASE EXCESS -3.6 mmol/L (-2.0-2.0); BG DEOXYHEMOGLOBIN 2.8 % (0.0-5.0); BG FRACTION INSPIRED OXYGEN 40; BG HCO3 ACT 19.6 mmol/L (22.0-26.0); BG METHEMOGLOBIN 0.2 % (0.0-1.5); BG OXYGEN SATURATION 97.2 % (92.0-98.5); BG PCO2 28.5 mmHg (35.0-45.0); BG PH 7.455 (7.350-7.450); BG PO2 100.2 mmHg (75.0-100.0); BG SAMPLE SITE RIGHT RADIAL; BG TIDAL VOLUME(mL) 500 mL; BG TOTAL HEMOGLOBIN 8.7 g/dL (12.0-18.0); BG VENT MODE VENT - A/C; BG VENT RATE 12 set
[2019-08-29 10:12] LABS: PLATELET ESTIMATE INCREASED
[2019-08-29] MEDS: CEFTRIAXONE 2 G in DEXTROSE 5% WATER 50 ML IV SCH (14:40)
[2019-08-29] MEDS: CLONIDINE 0.3MG TABLET PO PRN (15:19)
[2019-08-29] MEDS: ACETAMINOPHEN 325MG TABLET PO PRN (20:26)
[2019-08-30] VITALS (52 sets, daily range): BP systolic 113–170; BP diastolic 53–86
[2019-08-30] MEDS: INSULIN LISPRO 100 UNITS/ML SUBCUT SCH ×4 (00:03→18:13)
[2019-08-30] MEDS: BLOOD SUGAR DIAGNOSTIC STRIP TEST SCH ×4 (00:03→18:05)
[2019-08-30] MEDS: ACETYLCYSTEINE 100MG/ML 10% VIAL 4ML INH SCH ×2 (00:36→16:30)
[2019-08-30] MEDS: IPRATROPIUM/ALBUTEROL 0.5-3(2.5)MG/3ML NEB HHN SCH ×4 (00:36→20:40)
[2019-08-30 05:02] LABS: HEMATOCRIT. 23.4 % (42.0-52.0); MEAN CORPUSCULAR HEMOGLOBIN 30.4 pg (28.0-32.0); MEAN CORPUSCULAR VOLUME 88.5 fL (80.0-94.0); MEAN PLATELET VOLUME 9.2 fl (7.4-10.4); PLATELET 540 x1000/uL (130-400); RED BLOOD CELL COUNT 2.64 mill/uL (4.7-6.1); RED CELL DISTRIBUTION WIDTH 20.2 % (11.6-14.6)
[2019-08-30] MEDS: METRONIDAZOLE 500MG TABLET PO SCH ×2 (05:25→18:00)
[2019-08-30] MEDS: HYDRALAZINE HCL 25MG TABLET PO SCH ×2 (05:25→13:05)
[2019-08-30 07:09] LABS: PLATELET ESTIMATE INCREASED
[2019-08-30] MEDS: LEVETIRACETAM 500MG PREMIX 100 ML IV SCH ×2 (08:22→20:53)
[2019-08-30] MEDS: PANTOPRAZOLE SODIUM 40 MG/VIAL IV SCH (08:22)
[2019-08-30] MEDS: FOLIC ACID 1MG TABLET PO SCH (08:23)
[2019-08-30] MEDS: THIAMINE HCL 100MG TABLET PO SCH (08:23)
[2019-08-30] MEDS: AMLODIPINE 10MG TABLET PO SCH (08:23)
[2019-08-30] MEDS: MULTIVITAMINS,THER W-MINERALS TABLET PO SCH (08:23)
[2019-08-30] MEDS: CARVEDILOL 6.25 MG TABLET PO SCH ×2 (08:23→20:54)
[2019-08-30] MEDS: ASPIRIN 81MG EC TABLET PO SCH (08:23)
[2019-08-30 09:44] LABS: BG BASE EXCESS -6.2 mmol/L (-2.0-2.0); BG CARBOXYHEMOGLOBIN 0.4 % (0.5-1.5); BG DEOXYHEMOGLOBIN 3.2 % (0.0-5.0); BG FRACTION INSPIRED OXYGEN 40; BG METHEMOGLOBIN 0.2 % (0.0-1.5); BG OXYGEN SATURATION 96.8 % (92.0-98.5); BG OXYHEMOGLOBIN 96.2 % (94.0-97.0); BG PCO2 25.3 mmHg (35.0-45.0); BG PH 7.446 (7.350-7.450); BG PO2 97.3 mmHg (75.0-100.0); BG SAMPLE SITE RIGHT RADIAL; BG TIDAL VOLUME(mL) 500 mL; BG TOTAL HEMOGLOBIN 7.7 g/dL (12.0-18.0); BG VENT MODE VENT - A/C; BG VENT RATE 12 set
[2019-08-30] MEDS: INSULIN GLARGINE UD 100 UNITS/ML SYR SUBCUT SCH (10:58)
[2019-08-30] MEDS: CLONIDINE 0.3MG TABLET PO PRN ×2 (10:59→18:15)
[2019-08-30] MEDS: CEFTRIAXONE 2 G in DEXTROSE 5% WATER 50 ML IV SCH (14:31)
[2019-08-30] MEDS: HYDRALAZINE 20MG/ML VIAL IV PRN (16:31)
[2019-08-30] MEDS ORDERED: MORPHINE SULFATE 250 MG in DEXT 5% WATER 240 ML IV PRN (18:00)
[2019-08-30] MEDS: HYDRALAZINE HCL 50MG TABLET PO SCH (20:54)
[2019-08-31] VITALS (43 sets, daily range): BP systolic 112–147; BP diastolic 53–73
[2019-08-31] MEDS: INSULIN LISPRO 100 UNITS/ML SUBCUT SCH ×2 (00:01→05:44)
[2019-08-31] MEDS: BLOOD SUGAR DIAGNOSTIC STRIP TEST SCH ×2 (05:44)
[2019-08-31] MEDS: HYDRALAZINE HCL 50MG TABLET PO SCH (05:45)
[2019-08-31] MEDS: METRONIDAZOLE 500MG TABLET PO SCH (05:45)
[2019-08-31 05:50] LABS: HEMATOCRIT. 22.5 % (42.0-52.0); HEMOGLOBIN. 7.5 g/dL (14.0-18.0); MEAN CORPUSCULAR HEMOGLOBIN 30.2 pg (28.0-32.0); MEAN CORPUSCULAR VOLUME 90.3 fL (80.0-94.0); MEAN PLATELET VOLUME 8.7 fl (7.4-10.4); PLATELET 561 x1000/uL (130-400); RED BLOOD CELL COUNT 2.49 mill/uL (4.7-6.1); RED CELL DISTRIBUTION WIDTH 20.3 % (11.6-14.6)
[2019-08-31] MEDS: LEVETIRACETAM 500MG PREMIX 100 ML IV SCH ×2 (09:00→21:00)
[2019-08-31 11:11] LABS: PLATELET ESTIMATE INCREASED
[2019-09-01] VITALS: BP 134/56
[2019-09-01 04:00] VITALS: BP 144/63
[2019-09-01 08:00] VITALS: BP 109/67
[2019-09-01 12:00] VITALS: BP 126/64
[2019-09-01] MEDS ORDERED: ATROPINE SULFATE 1% OPHTH 2ML SL PRN (14:00)
== END 2019-09-01 14:42 | disposition expired | DRG 720 ==
LOC: ER 19:56 → 7EST 08-21 00:27 → EDBEDREQ 08-21 00:34 → EDBEDREQTM 08-21 00:34 → EDBEDREQSVC 08-21 04:15 → ENRESERV 08-21 15:21 → ER 08-21 16:07 → MICUNO 08-22 02:00 → CVICU 08-22 22:15 → 6EST 08-31 13:08
PROVIDERS: ADMIT Internal Medicine; ATTEND Internal Medicine
PROC: 0BH17EZ Insertion of Endotracheal Airway into Trachea, Via Natural or Artificial Opening (ICD-10-PCS; principal; 2019-08-22)
PROC: 5A1955Z Respiratory Ventilation, Greater than 96 Consecutive Hours (ICD-10-PCS; 2019-08-22)
PROC: 05HY33Z Insertion of Infusion Device into Upper Vein, Percutaneous Approach (ICD-10-PCS; 2019-08-22)
PROC: B54MZZA Ultrasonography of Right Upper Extremity Veins, Guidance (ICD-10-PCS; 2019-08-22)
PROC: 30233N1 Transfusion of Nonautologous Red Blood Cells into Peripheral Vein, Percutaneous Approach (ICD-10-PCS; 2019-08-25)
PROC: 4A10X4Z Monitoring of Central Nervous Electrical Activity, External Approach (ICD-10-PCS; 2019-08-25)
PROC: 02HV33Z Insertion of Infusion Device into Superior Vena Cava, Percutaneous Approach (ICD-10-PCS; 2019-08-26)
PROC: B548ZZA Ultrasonography of Superior Vena Cava, Guidance (ICD-10-PCS; 2019-08-26)
PROC: 0DB68ZX Excision of Stomach, Via Natural or Artificial Opening Endoscopic, Diagnostic (ICD-10-PCS; 2019-08-26)
PROC: 5A1D70Z Performance of Urinary Filtration, Intermittent, Less than 6 Hours Per Day (ICD-10-PCS; 2019-08-27)
DX: A40.3 Sepsis due to Streptococcus pneumoniae (principal); J96.00 Acute respiratory failure, unspecified whether with hypoxia or hypercapnia; N17.0 Acute kidney failure with tubular necrosis; J69.0 Pneumonitis due to inhalation of food and vomit; Z99.11 Dependence on respirator [ventilator] status; E46 Unspecified protein-calorie malnutrition; K29.71 Gastritis, unspecified, with bleeding; K86.1 Other chronic pancreatitis; E87.1 Hypo-osmolality and hyponatremia; E86.0 Dehydration; I12.9 Hypertensive chronic kidney disease with stage 1 through stage 4 chronic kidney disease, or unspecified chronic kidney disease; N18.9 Chronic kidney disease, unspecified; D64.9 Anemia, unspecified; E87.6 Hypokalemia; F10.20 Alcohol dependence, uncomplicated; I16.1 Hypertensive emergency; E11.22 Type 2 diabetes mellitus with diabetic chronic kidney disease; R74.0 Nonspecific elevation of levels of transaminase and lactic acid dehydrogenase [LDH]; F10.239 Alcohol dependence with withdrawal, unspecified; Z66 Do not resuscitate; Z51.5 Encounter for palliative care; R94.31 Abnormal electrocardiogram [ECG] [EKG]; G40.909 Epilepsy, unspecified, not intractable, without status epilepticus; E11.65 Type 2 diabetes mellitus with hyperglycemia; F32.9 Major depressive disorder, single episode, unspecified; F41.9 Anxiety disorder, unspecified; K76.0 Fatty (change of) liver, not elsewhere classified; Z22.322 Carrier or suspected carrier of Methicillin resistant Staphylococcus aureus; Z87.891 Personal history of nicotine dependence; Z68.30 Body mass index [BMI] 30.0-30.9, adult; Z79.899 Other long term (current) drug therapy; Z79.84 Long term (current) use of oral hypoglycemic drugs; Z78.1 Physical restraint status; Z03.818 Encounter for observation for suspected exposure to other biological agents ruled out
CPT/HCPCS: 36415; 36600; 71045; 76705; 76770; 76937; 80048; 80053; 80076; 80156; 80165; 80185; 80202; 80305; 80320; 81003; 82140; 82270; 82375; 82550; 82728; 82805; 82962; 83605; 83615; 83735; 83880; 84100; 84132; 84145; 84443; 84478; 84484; 85014; 85018; 85025; 86705; 86706; 86709; 86803; 86850; 86900; 86920; 87070; 87077; 87186; 87340; 88305; 88312; 88313; 93005; 93306; 93970; 94003; 94640; 95816; 99291; C1725; C1752; C9113; J0360; J0456; J0696; J1165; J1650; J1815; J1953; J2060; J2250; J2270; J2274; J2405; J2704; J3010; J3370; J3475; J3480; J3490; J7030; J7040; J7050; J7060; J7608; P9016; U0003; G0480